=== PATIENT | female | born 1985 | race Caucasian/White ===

== ENCOUNTER 2018-09-29 00:06 | Emergency (ER) | payer SELFPAY ==
[~2018-09-29] VITALS: Ht 157.5 cm; Wt 68.0 kg
--- OUTSIDE RECORDS SUMMARY | 2018-09-29 00:10 | XMS REPORT ---
Author Author [facility] Address Unknown Phone Unavailable Care Team Providers Care Private Tutor Name Role Phone Unavailable Unavailable Problems This patient has no known problems. Allergies, Adverse Reactions, Alerts This patient has no known allergies or adverse reactions. Medications This patient has no known medications. Encounters Start Date/Time End Date/Time Encounter Type Admission Type Attending [facility] Care Department Encounter ID 2018-08-14 00:00:00 2018-08-14 00:00:00 Outpatient [facility] [id number] 2018-08-03 00:00:00 2018-08-03 00:00:00 Outpatient [facility] [id number] 2018-06-05 15:07:55 2018-06-05 15:07:55 Outpatient [facility] [id number] 2018-06-04 00:00:00 2018-06-04 00:00:00 Outpatient [facility] [id number] 2018-06-02 13:50:26 2018-06-02 13:50:26 Outpatient [facility] [id number] 2018-05-21 00:00:00 2018-05-21 00:00:00 Outpatient [facility] [id number] 2018-03-03 00:00:00 2018-03-03 00:00:00 Outpatient [facility] [id number] 2018-02-12 00:00:00 2018-02-12 00:00:00 Outpatient [facility] [id number] 2018-02-12 00:00:00 2018-02-12 00:00:00 Outpatient [facility] [id number] 2018-02-02 00:00:00 2018-02-02 00:00:00 Outpatient [facility] [id number] 2018-01-26 00:00:00 2018-01-26 00:00:00 Outpatient [facility] [id number] 2018-01-07 00:00:00 2018-01-07 00:00:00 Outpatient [facility] [id number] 2017-12-18 10:59:53 2017-12-18 10:59:53 Outpatient [facility] [id number] 2017-12-16 11:27:16 2017-12-16 11:27:16 Outpatient [facility] [id number] 2017-12-16 09:45:53 2017-12-16 09:45:53 Outpatient [facility] [id number]
--- OUTSIDE RECORDS SUMMARY | 2018-09-29 00:10 | XMS REPORT | Clinical Summary ---
Author Author [facility] Organization [facility] Address Unknown Phone Unavailable Care Team Providers Care Court Deputy Name Role Phone WaldemarXiomara parnell ResidentMD 5 Jim Roman MD PCP Allergies No Known Allergies Medications End Date Status Medication Sig Dispensed Refills Start Date Active nicotine (NICODERM CQ) 14 Apply 1 Patch 28 Patch 0 mg/24 hr to skin as 8 patchIndications: Tobacco directed abuse every 24 hours. Active blood glucose (PRECISION Use 2 times 100 Each 3 XTRA TEST STRIPS) test daily. 8 stripsIndications: Type 2 diabetes mellitus with hyperglycemia, with long-term current use of insulin Active lancets 28 Use 3 times 100 Each 1 gaugeIndications: Type 2 daily. 8 diabetes mellitus with hyperglycemia, with long-term current use of insulin Active blood glucose meter Use as 1 Kit 0 (PRECISION XTRA directed.. 8 GLUCOMETER)Indications: Type 2 diabetes mellitus with hyperglycemia, with long-term current use of insulin Active insulin detemir U-100 Inject 35 5 Pen 3 (LEVEMIR FLEXTOUCH) 100 Units under 8 unit/mL (3 mL) the skin PenIndications: Type 2 daily. diabetes mellitus with hyperglycemia, with long-term current use of insulin Active pen needle, diabetic 31 Inject under 1 Box 3 gauge x 3/16" the skin 8 needlesIndications: Type daily. 2 diabetes mellitus with hyperglycemia, with long-term current use of insulin Active metFORMIN (GLUCOPHAGE) Take 1 tablet 60 tablet 3 500 mg tabletIndications: by mouth 2 8 Type 2 diabetes mellitus times daily with hyperglycemia, with (with meals). long-term current use of insulin Active QUEtiapine (SEROQUEL) 200 Take 1 tablet 30 tablet 1 mg tabletIndications: by mouth at 8 Attention deficit bedtime hyperactivity disorder nightly. (ADHD), combined type Active traZODone (DESYREL) 100 Take 1 tablet 30 tablet 1 mg tabletIndications: by mouth at 8 Attention deficit bedtime hyperactivity disorder nightly. (ADHD), combined type Active naproxen (NAPROSYN) 500 Take 1 tablet 60 tablet 1 mg tabletIndications: by mouth 2 8 Chronic midline low back times daily pain without sciatica as needed (take with food) (1 nahimk=600 mg). Active albuterol 90 Inhale 2 6.7 g 2 mcg/actuation Puffs by 8 inhalerIndications: mouth 4 times Dyspnea, unspecified type daily as needed for Wheezing or Shortness of Breath. 06/02/2018 Discontinued QUEtiapine (SEROQUEL) 200 Take 200 mg 0 mg tablet by mouth at bedtime nightly. 06/02/2018 Discontinued traZODone (DESYREL) 100 Take 100 mg 0 mg tablet by mouth at bedtime nightly. 12/18/2017 Discontinued insulin glargine (LANTUS) Inject 28 0 100 unit/mL injection Units under the skin at bedtime nightly. 06/02/2018 Discontinued blood glucose meter Use as 1 Kit 0 (PRECISION XTRA directed.. 8 GLUCOMETER)Indications: Type 2 diabetes mellitus with hyperglycemia, with long-term current use of insulin 06/02/2018 Discontinued blood glucose (PRECISION Use 2 times 50 Each 3 XTRA TEST STRIPS) test weekly (once 8 stripsIndications: Type 2 per day on diabetes mellitus with Mon,) to hyperglycemia, with test blood long-term current use of sugar. insulin 06/02/2018 Discontinued lancets 28 Use 2 times 100 Each 1 gaugeIndications: Type 2 weekly as 8 diabetes mellitus with directed. hyperglycemia, with long-term current use of insulin 06/02/2018 Discontinued insulin detemir U-100 Inject 35 5 Pen 3 (LEVEMIR FLEXTOUCH) 100 Units under 8 unit/mL (3 mL) the skin PenIndications: Type 2 daily for 184 diabetes mellitus with days. hyperglycemia, with long-term current use of insulin 06/02/2018 Discontinued pen needle, diabetic Inject under 1 Box 3 (TRUEPLUS PEN NEEDLE) 31 the skin 8 gauge x 3/16" daily. needlesIndications: Type 2 diabetes mellitus with hyperglycemia, with long-term current use of insulin 06/02/2018 Discontinued metFORMIN (GLUCOPHAGE) Take 1 tablet 90 tablet 3 500 mg tabletIndications: by mouth 2 8 Type 2 diabetes mellitus times daily with hyperglycemia, with (with meals). long-term current use of insulin 12/19/2017 fluconazole (DIFLUCAN) Take 1 tablet 1 tablet 0 150 mg tabletIndications: by mouth once 8 Vaginal doni for 1 dose. Active Problems Problem Noted Date Type 2 diabetes mellitus with hyperglycemia, with long-term current use of 12/16/2017 insulin Attention deficit hyperactivity disorder (ADHD), combined type 12/16/2017 Encounters Care Team Description Date Type Specialty Jim Roman III, MD Chronic midline low back pain without sciatica; Dyspnea, unspecified type 06/05/2018 Ancillary Radiology Procedure Renetta Billings Manager Culinary 06/03/2018 Telephone Social Work Jim Roman III, MD Attention deficit hyperactivity disorder (ADHD), combined type (Primary Dx); Type 2 diabetes mellitus with hyperglycemia, with long-term current use of insulin; Numbness and tingling in right hand; Immunization due; Anxiety; Chronic midline low back pain without sciatica; Tobacco abuse; Dyspnea, unspecified type 06/02/2018 Office Visit [facility] Jim Roman III, MD Attention deficit hyperactivity disorder (ADHD), combined type 06/02/2018 Orders Only [facility] Kimi Larios, Raegan Ruvalcaba MD NO SHOW ENCOUNTER (Primary Dx) 02/12/2018 Office Visit Internal Medicine Preet Cassidy MD Ismail, Nadia J, MD Type 2 diabetes mellitus with hyperglycemia, with long-term current use of insulin (Primary Dx); Attention deficit hyperactivity disorder (ADHD), combined type; Vaginal doni; Tobacco abuse 12/18/2017 Office Visit Internal Medicine Xiomara Medeiros ResidentMD Type 2 diabetes mellitus with hyperglycemia, with long-term current use of insulin (Primary Dx); Attention deficit hyperactivity disorder (ADHD), combined type; Overweight; Need for tetanus, diphtheria, and acellular pertussis (Tdap) vaccine 12/16/2017 Office Visit Internal Medicine Xiomara Medeiros, ResidentMD Attention deficit hyperactivity disorder (ADHD), combined type 12/16/2017 Orders Only Internal Medicine after 09/28/2017 Immunizations Name Dates Previously Given Next Due Influenza <Unspecified> 05/03/2018 PNEUMOCOCCAL 23-VALPS 06/02/2018 VACCINE 25 MCG/0.5 ML INJECTION PPD 05/04/2010 TDap (Tetanus Toxoid, 12/16/2017 Reduced Diphtheria Toxoid And Acellular Pertussis, Absorbed) Family History Medical History Relation Name Comments Psychiatry Father Diabetes Maternal Aunt Diabetes Mother Psychiatry Mother Relation Name Status Comments Father Maternal Aunt Mother Social History Date Tobacco Use Types Packs/Day Years Used Current Every Day Smoker Cigarettes 1 19 Smokeless Tobacco: Never Used Tobacco Cessation: Ready to Quit: Yes; Counseling Given: Yes Alcohol Use Drinks/Week oz/Week Comments No Heavy alcohol use in the past; quit 1-2 months ago Sex Assigned at Date Recorded Not on file Industry Job Start Date Occupation Not on file Not on file Not on file Travel End Travel History Travel Start No recent travel history available. Last Filed Vital Signs Time Taken Vital Sign Reading 06/02/2018 1:53 PM CDT Blood Pressure 107/76 06/02/2018 1:53 PM CDT Pulse 85 06/02/2018 1:53 PM CDT Temperature 36.8 C (98.2 F) 06/02/2018 1:53 PM CDT Respiratory Rate 18 - Oxygen Saturation - - Inhaled Oxygen - Concentration 06/02/2018 1:53 PM CDT Weight 61.5 kg (135 lb 9.6 oz) 06/02/2018 1:53 PM CDT Height 157.5 cm (5' 2") 06/02/2018 1:53 PM CDT Body Mass Index 24.8 Plan of Treatment Health Maintenance Due Date Last Done Comments Cervical Cancer Scrn (3 2007 Yrs) IMM Influenza Seasonal 05/25/2018 05/03/2018 Oct to October (>/=19 yrs) DM Retinal Exam (Yearly) 11/17/2018 11/17/2017 (Previously completed - External) DM HGBA1C (Yearly) 12/16/2018 12/16/2017 DM Microalbumin Urine 12/16/2018 12/16/2017, 12/19/2009 Scrn (Yearly) DM Foot Exam (Yearly) 06/02/2019 06/02/2018, 12/16/2017 Goals Goal Patient Associated Recent Progress Patient-Stat Author Goal Type Problems ed? Feel more energetic Lifestyle No Marylu Smith Procedures Comments Procedure Name Priority Date/Time Associated Diagnosis XRAY CHEST 2 VIEWS Routine 06/05/2018 Dyspnea, unspecified type 3:34 PM CDT XRAY SPINE L-SACRAL AP- Routine 06/05/2018 Chronic midline low back LAT- OBL- SPOT 3:34 PM CDT pain without sciatica NEEDLE EMG, 1 EXTREMITY Routine 06/02/2018 Numbness and tingling in 3:31 PM CDT right hand DIABETIC FOOT EXAM Routine 06/02/2018 Type 2 diabetes mellitus 3:21 PM CDT with hyperglycemia, with long-term current use of insulin LIPID PROFILE Routine 12/16/2017 Type 2 diabetes mellitus 11:32 AM CDT with hyperglycemia, with long-term current use of insulin TSH Routine 12/16/2017 Overweight 11:30 AM CDT HEMOGLOBIN A1C Routine 12/16/2017 Type 2 diabetes mellitus 11:30 AM CDT with hyperglycemia, with long-term current use of insulin BASIC METABOLIC PANEL Routine 12/16/2017 Type 2 diabetes mellitus 11:30 AM CDT with hyperglycemia, with long-term current use of insulin MICROALBUM, URINE Routine 12/16/2017 Type 2 diabetes mellitus 11:29 AM CDT with hyperglycemia, with long-term current use of insulin DIABETIC FOOT EXAM Routine 12/16/2017 Type 2 diabetes mellitus 10:10 AM CDT with hyperglycemia, with long-term current use of insulin after 09/28/2017 Results * XRAY CHEST 2 VIEWS (06/05/2018 3:34 PM CDT) Impressions Performed At IMPRESSION: SMS 1.No acute cardiothoracic findings. Signed By: Morteza Benítez MD, 06/07/2018 8:04 AM Narrative Performed At EXAM: XRAY CHEST 2 VIEWS [facility] DATE: 06/05/2018 3:34 PM INDICATION: dyspnea COMPARISON: None FINDINGS: Devices, Lines, and Tubes: None. Heart and Mediastinum: The cardiomediastinal silhouette is unremarkable. Lungs and Pleura: No significant pleural effusion, pneumothorax, or focal consolidation. Bones and Soft Tissues: No acute findings. Procedure Note [facility] - 06/07/2018 8:09 AM CDT EXAM: XRAY CHEST 2 VIEWS DATE: 06/05/2018 3:34 PM INDICATION: dyspnea COMPARISON: None FINDINGS: Devices, Lines, and Tubes: None. Heart and Mediastinum: The cardiomediastinal silhouette is unremarkable. Lungs and Pleura: No significant pleural effusion, pneumothorax, or focal consolidation. Bones and Soft Tissues: No acute findings. IMPRESSION IMPRESSION: 1. No acute cardiothoracic findings. Signed By: Morteza Benítez MD, 06/07/2018 8:04 AM Performing Organization Address City/State/Zipcode Phone Number SMS * XRAY SPINE L-SACRAL AP- LAT- OBL- SPOT (06/05/2018 3:34 PM CDT) Impressions Performed At IMPRESSION: SMS Mild to moderate facet arthropathy of the lumbar spine, greatest at L5-S1. Dictated By: Savage Barton MD, 06/08/2018 9:13 AM I have reviewed the study and agree with the findings in this report. Signed By: Lonny White MD, 06/08/2018 9:35 AM Narrative Performed At Lumbar Spine Radiographs - 3 view(s) [facility] HISTORY:low back pain COMPARISON: None DISCUSSION: Bone: Osseous structures are partially obscured by stool and bowel gas. Partially visualized metallic hardware in the left femoral head. Five nonrib-bearing lumbar vertebral bodies. Normal alignment. No displaced fracture or compression deformity. Discs: The disc spaces are well maintained. Joints: Mild facet arthrosis L3-L4 and L4-L5. Moderate facet arthrosis L5-S1. Procedure Note [facility] - 06/08/2018 9:40 AM CDT Lumbar Spine Radiographs - 3 view(s) HISTORY: low back pain COMPARISON: None DISCUSSION: Bone: Osseous structures are partially obscured by stool and bowel gas. Partially visualized metallic hardware in the left femoral head. Five nonrib-bearing lumbar vertebral bodies. Normal alignment. No displaced fracture or compression deformity. Discs: The disc spaces are well maintained. Joints: Mild facet arthrosis L3-L4 and L4-L5. Moderate facet arthrosis L5-S1. IMPRESSION IMPRESSION: Mild to moderate facet arthropathy of the lumbar spine, greatest at L5-S1. Dictated By: Savage Barton MD, 06/08/2018 9:13 AM I have reviewed the study and agree with the findings in this report. Signed By: Lonny White MD, 06/08/2018 9:35 AM Performing Organization Address [facility] Phone Number SMS * DIABETIC FOOT EXAM (06/02/2018 3:21 PM CDT) Only the most recent of 2 results within the time period is included. Narrative Performed At Jim Roman MD 06/02/20184:13 PM Diabetic Foot Exam was performed at 06/02/2018 3:39 PM.Right foot sensation is normal, right foot pulses are normal, right foot appearance is normal.Left foot sensation is normal,left foot pulses are normal, left foot appearance is normal. * LIPID PROFILE (12/16/2017 11:32 AM CDT) Cholesterol 147 0 - 200 mg/dL [facility] 2 Comment: REFERENCE RANGE: Desirable: <200 mg/dL Borderline: 200-240 mg/dL High Risk: >240 mg/dL National Heart, Lung and Blood [place], [facility] Publication No.[id number] December 2000 Triglyceride 110 <150 mg/dL [facility] 2 Comment: REFERENCE RANGE: Normal: <150 mg/dL Borderline High: 150-199 mg/dL High: 200-499 mg/dL Very High: >ly=345 mg/dL HDL 41 40 - 60 mg/dL [facility] 2 LDL 84 mg/dL [facility] 2 Comment: REFERENCE RANGE: Optimal: <100 mg/dL Near Optimal: 100-129 mg/dL Borderline High: 130-159 mg/dL High: 160-189 mg/dL Very High: >wi=956 mg/dL Specimen Blood Performing Organization Address [facility] Phone Number MIS[place]FONSO [facility] 2 * HEMOGLOBIN A1C (12/16/2017 11:30 AM CDT) Hemoglobin A1c 10.3 (H) 4.3 - 6.1 % BT DIAGNOSTIC IMMUNOLOGY Est Average 248.9 mg/dL BT DIAGNOSTIC Gluc IMMUNOLOGY Specimen Blood Performing Organization Address [facility] Phone Number JOSE CARLOS BT DIAGNOSTIC IMMUNOLOGY * TSH (12/16/2017 11:30 AM CDT) Pathologist [facility] TSH 2.03 0.45 - 5.33 uIU/mL OUTPATIENT DRAW 2 Specimen Blood Performing Organization Address [facility] Phone Number JOSE CARLOS OUTPATIENT DRAW 2 * BASIC METABOLIC PANEL (12/16/2017 11:30 AM CDT) Pathologist [facility] CO2 27 21 - 31 mmol/L [facility] 2 Chloride 105 98 - 107 mmol/L [facility] 2 Potassium 3.9 3.5 - 5.1 mmol/L [facility] 2 Sodium 140 136 - 145 mmol/L [facility] 2 Glucose 257 (H) 70 - 99 mg/dL [facility] 2 Urea Nitrogen 15 7 - 25 mg/dL [facility] 2 Creatinine 0.60 0.60 - 1.30 mg/dL [facility] 2 Anion Gap 8 [facility] 2 Calcium 8.9 8.6 - 10.3 mg/dL [facility] 2 GFR, Estimated >60 mL/min/1.73 m2 [facility] 2 GFR, Estim, >60 mL/min/1.73 m2 [facility] 2 Afr-Am Specimen Blood Performing Organization Address [facility] Phone Number JOSE CARLOS [facility] 2 * MICROALBUM, URINE (12/16/2017 11:29 AM CDT) Pathologist [facility] Microalbum, 18.6 0.0 - 29.0 mg/dL BT MAIN-STATION Random 1 Creatinine, Ur 284.3 20 - 320 mg/dL BT MAIN-STATION 1 Urine 65.4 (H) 0 - 29 mg/g UCR BT MAIN-STATION Microalbumin Comment: 1 To minimize intra-individual variation, analysis of three random urine samples collected over the course of a week is recommended. Performing Organization Address [facility] Phone Number [facility] 1 after 09/28/2017
[2018-09-29] MEDS ORDERED: ONDANSETRON HCL INJ 2MG/ML 2ML 2 MG/ML VIAL IV STA (01:00)
[2018-09-29 01:18] LABS: AMPHETAMINES SCREEN,URINE NEGATIVE (NEGATIVE); BENZODIAZEPINES SCREEN,URINE NEGATIVE (NEGATIVE); CLARITY,URINE CLEAR (CLEAR); COLOR,URINE YELLOW (YELLOW); KETONES,URINE TRACE (NEGATIVE); LEUKOCYTE ESTERASE ,URINE NEGATIVE (NEGATIVE); NITRITE,URINE NEGATIVE (NEGATIVE); PHENCYCLIDINE SCREEN,URINE NEGATIVE (NEGATIVE); PROTEIN,URINE DIPSTICK 1+ (NEGATIVE)
[2018-09-29 01:19] LABS: BILIRUBIN,URINE NEGATIVE (NEGATIVE); PREGNANCY TEST, URINE NEGATIVE (NEGATIVE); URINE UROBILINOGEN 0.2 mg/dL (0.2 - 1)
[2018-09-29 01:44] LABS: BACTERIA,URINE FEW /HPF; EPITHELIAL CELLS,URINE FEW /LPF
--- NOTE | 2018-09-29 01:49 | Diagnostic Imaging Report ---
EXAM: XR CHEST 2 VIEWS DATE: 09/29/2018 1:12 AM INDICATION: Cough COMPARISON: None FINDINGS: Lines and Tubes: None Heart and Mediastinum: No acute cardiomediastinal findings. Lungs and Pleura: No significant pleural effusion, pneumothorax, or focal consolidation. Probable basilar atelectasis. Bones and Soft Tissues: No acute findings. IMPRESSION: 1. No acute cardiopulmonary findings. Signed by: Dr. Morteza Benítez MD on 09/29/2018 1:46 AM
--- NOTE | 2018-09-29 01:57 | NUR ---
spo2 dropped to 86% on room air. pt awake alert skin w/d resp nonlab. denies worsening of symptoms. placed on O2 3l nc. spo2 up to 94% on 3L.
[2018-09-29] MEDS ORDERED: SODIUM CHLORIDE 0.9% 1000ML 1,000 ML IV STA (02:09)
[2018-09-29 02:10] LABS: ALANINE AMINOTRANSFERASE 12 IU/L (0-55); ALBUMIN/GLOBULIN RATIO 1.1 (0.8-2.0); ALKALINE PHOSPHATASE 79 IU/L (40-150); ANION GAP 17.2 mmol/L (8-16); BLOOD UREA NITROGEN 13 mg/dL (7-26); BUN/CREATININE RATIO 15 (6-25); CALCIUM 9.3 mg/dL (8.4-10.2); CARBON DIOXIDE 22 mmol/L (22-29); CHLORIDE 94 mmol/L (98-107); CREATININE, SERUM 0.85 mg/dL (0.57-1.11); EST GLOMERULAR FILTRATION RATE > 60 ML/MIN (60-); GLUCOSE 336 mg/dL (74-118); POTASSIUM 3.2 mmol/L (3.5-5.1); SODIUM 130 mmol/L (136-145)
[2018-09-29] MEDS ORDERED: SODIUM CHLORIDE 0.9% 1000ML 1,000 ML ONE (02:11)
[2018-09-29] MEDS ORDERED: ALBUTEROL SULF 0.083% NEB SOLN 3 ML NEB ONE (02:18)
[2018-09-29] MEDS ORDERED: IPRATROPIUM BROMIDE 0.02% 2.5 ML NEB ONE (02:19)
[2018-09-29 02:22] LABS: HEMOGLOBIN 13.6 g/dL (12.0-16.0); RED BLOOD COUNT 4.62 x10e6/uL (3.6-5.1)
[2018-09-29 02:23] LABS: BASOPHILS % 0.3 % (0.0-1.0); EOSINOPHILS % 0.1 % (0.0-6.0); HEMATOCRIT 39.9 % (34.2-44.1); LYMPHOCYTES % 17.6 % (18.0-39.1); MEAN CORPUSCULAR HEMOGLOBIN 29.4 pg (28-32); MEAN CORPUSCULAR HGB CONC 34.1 g/dL (31-35); MEAN CORPUSCULAR VOLUME 86.4 fL (81-99); MONOCYTES % 10.8 % (4.4-11.3); NEUTROPHILS % 70.6 % (38.7-80.0); PLATELET COUNT 268 x10e3/uL (140-360); RED CELL DISTRIBUTION WIDTH 13.2 % (11.7-14.4)
[2018-09-29 02:24] LABS: LYMPHOCYTES # (AUTO) 1.7 (1.0-3.2); NEUTROPHILS # (AUTO) 6.8 (2.1-6.9)
[2018-09-29] MEDS ORDERED: ALBUTEROL SULF 0.083% NEB SOLN 3 ML NEB NEB STA (02:27)
[2018-09-29] MEDS ORDERED: IPRATROPIUM BROMIDE 0.02% 2.5 ML NEB NEB STA (02:27)
[2018-09-29 02:39] LABS: INFLUENZAE A&B ANTIGEN (RAPID) NEGATIVE (NEGATIVE); STREPTOCOCCUS GRP A ANTIGEN NEGATIVE (NEGATIVE)
[2018-09-29] MEDS ORDERED: SODIUM CHLORIDE 0.9% 1000ML 1,000 ML IV SCH (03:00)
--- NOTE | 2018-09-29 04:19 | NUR ---
resting with eyes closed, easily aroused, skin w/d resp nonlab, nad noted. pt requesting pain medication, aware
[2018-09-29] MEDS ORDERED: KETOROLAC TROMETHAMINE 30 MG/ML VIAL IV STA (04:23)
[2018-09-29] MEDS ORDERED: KETOROLAC TROMETHAMINE 30 MG/ML VIAL ONE (04:29)
== END 2018-09-29 04:53 | disposition home or self-care (01) ==
LOC: ER 00:06
DX: R11.2 Nausea with vomiting, unspecified (principal); R19.7 Diarrhea, unspecified; R10.9 Unspecified abdominal pain; A08.4 Viral intestinal infection, unspecified; E86.0 Dehydration; J20.9 Acute bronchitis, unspecified; E11.9 Type 2 diabetes mellitus without complications; F31.9 Bipolar disorder, unspecified
CPT/HCPCS: 36415; 71046; 80053; 80307; 81001; 81025; 82948; 83518; 83605; 85025; 85379; 87040; 87070; 87400; 94640; 99284; J1885; J2405; J7030

== ENCOUNTER 2021-11-22 11:38 | Emergency (ER) | payer OTHER ==
[~2021-11-22] VITALS: Ht 157.5 cm; Wt 68.0 kg
[2021-11-22] MEDS ORDERED: IBUPROFEN 600 MG TAB PO STA (13:31)
[2021-11-22] MEDS ORDERED: ONDANSETRON ODT4 MG PO (13:40)
[2021-11-22] MEDS ORDERED: IBUPROFEN600 MG PO (13:40)
[2021-11-22] MEDS ORDERED: METHOCARBAMOL500 MG PO (13:40)
[2021-11-22] MEDS ORDERED: ONDANSETRON HCL 4 MG ORAL DISINTEGRATING TAB PO ONE (13:45)
[2021-11-22] MEDS ORDERED: METHOCARBAMOL 750 MG TAB PO ONE (13:45)
== END 2021-11-22 14:14 | disposition home or self-care (01) ==
LOC: ER 11:55
DX: S20.214A Contusion of middle front wall of thorax, initial encounter (principal); V43.62XA Car passenger injured in collision with other type car in traffic accident, initial encounter; Y92.488 Other paved roadways as the place of occurrence of the external cause; E11.9 Type 2 diabetes mellitus without complications; Z99.2 Dependence on renal dialysis; F31.9 Bipolar disorder, unspecified; G47.00 Insomnia, unspecified; R94.31 Abnormal electrocardiogram [ECG] [EKG]
CPT/HCPCS: 71046; 93005; 99283; Q0162